=== PATIENT | male | born 1935 | race Caucasian/White ===

== ENCOUNTER 2018-01-04 21:56 | Emergency (ER) | payer OTHER, MEDICAID ==
[~2018-01-04] VITALS: Ht 152.4 cm; Wt 54.4 kg
[~2018-01-04 21:56] MED LIST: CARV3.1246 PO; FURO-150 PO; LORA-258 PO; SERT-131 PO
[2018-01-04 22:05] VITALS: BP_SYST 127
[2018-01-04] MEDS ORDERED: LIDOCAINE 1% 10 MG/ML, 20 ML MDV INJ ONE (22:15)
[2018-01-04] MEDS ORDERED: DIPH-TET-PERTUS Vaccine 0.5 ML VIAL (ADACEL) I.M. ONE (22:30)
[2018-01-04 23:34] VITALS: BP_SYST 152
== END 2018-01-04 23:34 | disposition home or self-care (01) ==
LOC: SED 21:56
DX: S02.2XXA Fracture of nasal bones, initial encounter for closed fracture (principal); S01.21XA Laceration without foreign body of nose, initial encounter; I10 Essential (primary) hypertension; F41.9 Anxiety disorder, unspecified; Z79.899 Other long term (current) drug therapy; W18.39XA Other fall on same level, initial encounter; Y93.89 Activity, other specified; Y92.009 Unspecified place in unspecified non-institutional (private) residence as the place of occurrence of the external cause; Y99.8 Other external cause status
CPT/HCPCS: 70450-TC; 70486-TC; 90715; 99284

== ENCOUNTER 2021-03-21 10:38 | Inpatient (IN) | payer OTHER, MEDICAID, SELFPAY ==
[~2021-03-21] VITALS: Ht 167.6 cm; Wt 60.8 kg
[2021-03-21 10:41] VITALS: BP_SYST 96
--- NOTE | 2021-03-21 10:41 | NUR ---
Placed in room 6 . Placed on hall monitor, blood pressure machine and pulse oximeter. To gown for exam. Side rails up. Report given to HUGH LOZOYA.
--- NOTE | 2021-03-21 10:49 | NUR ---
PT BROUGHT IN BY AMBULANCE FROM CORRECTION ATER BEING SEEN ON THE FLOOR BY NEIGHBOR. PT AWAKE, ALERT, ORIENTED X3, SMILING, IN NAD. RESP EVEN AND UNLABORED, ON RA @98%. DENIES ANY CP OR SOB. NO OBVIOUS HEAD TRAUMA NOTED. PT HAS KERLIX TO LEFT ARM, PER REPORT, PT HAS A SKIN TEAR , BRIGHT RED BLOOD NOTED. PT ABLE TO COMMUNICATE NEEDS AND FOLOWS SIMPLE COMMANDS. SAFETY PRECAUTIONS IN PLACE.
--- NOTE | 2021-03-21 10:55 | NUR ---
DR IVONNE RAY FOR EXAM.
--- NOTE | 2021-03-21 10:57 | NUR ---
PT TO CT SCAN VIA [facility]
[2021-03-21 11:49] LABS: BASOPHILS # (AUTO) 0.1 K/uL (0.0-0.2); BASOPHILS % (AUTO) 0.6 % (0.0-2.0); EOSINOPHILS % (AUTO) 0.1 % (0.0-4.0); HEMATOCRIT 28.8 % (36-54); HEMOGLOBIN 9.6 g/dL (14.0-18.0); LYMPHOCYTES % (AUTO) 8.1 % (20.5-51.5); MEAN CORPUSCULAR HEMOGLOBIN 27 pg (27-31); MEAN CORPUSCULAR HGB CONC 33 % (32-36); MEAN CORPUSCULAR VOLUME 82 fL (79.0-98.0); MONOCYTES # (AUTO) 0.8 K/uL (0.0-1.0); MONOCYTES % (AUTO) 6.1 % (1.7-9.3); NEUTROPHILS % (AUTO) 85.1 % (40.0-70.0); PLATELET COUNT (AUTO) 283 K/uL (130-430)
[2021-03-21 12:02] LABS: ANION GAP 2 (5-15); CALCIUM 8.9 mg/dL (8.4-11.0); CHLORIDE 99 mmol/L (98-107); CREATININE 0.68 mg/dL (0.55-1.30); GLUCOSE 110 mg/dL (70-99); POTASSIUM 3.6 mmol/L (3.5-5.1); SODIUM SERUM 134 mmol/L (136-145); UREA NITROGEN, BLOOD 19 mg/dL (8-21)
[2021-03-21 12:08] LABS: ALANINE AMINOTRANSFERASE 23 U/L (12-78); ALBUMIN 2.8 g/dL (3.4-4.8); ASPARTATE AMINOTRANSFERASE 33 U/L (10-37); LIPASE 75 U/L (73-393); TOTAL BILIRUBIN 0.9 mg/dL (0.0-1.0)
--- NOTE | 2021-03-21 12:18 | NUR ---
NO ACUTE CHANGE IN CONDITION, PT WITHEYE CLOSED, EASILY [place], IRMA ANY PAIN. WAITING FOR DISPO.
[2021-03-21 12:37] LABS: BILIRUBIN,URINE NEGATIVE (NEGATIVE); BLOOD, URINE NEGATIVE (NEGATIVE); CLARITY/URINE CLEAR (CLEAR); COLOR,URINE YELLOW (YELLOW); GLUCOSE,URINE NEGATIVE (NEGATIVE); KETONES,URINE 1+ (NEGATIVE); LEUKOCYTE ESTERASE ,URINE NEGATIVE (NEGATIVE); NITRITE, URINE NEGATIVE (NEGATIVE); PROTEIN URINE NEGATIVE (NEGATIVE); UROBILINOGEN,URINE 0.2 (0.2-1.0)
--- NOTE | 2021-03-21 13:10 | NUR ---
ADMISSION ORDERS RECEIVED FROM DR. KUMAR
--- NOTE | 2021-03-21 13:18 | NUR ---
CALL FOR TELE MARIAM BROWN TO CALL BACK
--- NOTE | 2021-03-21 14:14 | NUR ---
PT HAVING ECHO A BEDSIDE AT THIS TIME.
--- NOTE | 2021-03-21 14:35 | NUR ---
CONSULTATION PAGED REASON FOR CONSULTATIONlSYNOCOPE WAS CONSULT CALED?Y PERSON WHO WAS NOTIFIED:DAVID CONSULTING PHYSICIAN:RAMSES MOCTEZUMA WATCH REPAIRER SPECIALTY:CARDIO WATCH REPAIRER PHONE [phone]: REQUESTING PHYSICIAN:ANTONINA KOHLI
[2021-03-21 14:48] VITALS: BP_SYST 102
--- NOTE | 2021-03-21 14:49 | NUR ---
Patient will be admitted to care of [facility]. Admitted to unit. Will go to room . Belongings list completed. Complete and up to date summary report printed. SBAR report to be given at bedside with opportunity for questions.
[2021-03-21] MEDS ORDERED: ACETAMINOPHEN 325 MG TABLET PO PRN (15:15)
[2021-03-21] MEDS ORDERED: CARVEDILOL 3.125 MG TABLET (COREG) PO ONE (15:15)
[2021-03-21] MEDS ORDERED: D5/0.45 NS 1,000 ML IV SCH (15:30)
[2021-03-21] MEDS: KCL 20 mEq in D5/0.45NS 1000mL 1,000 ML IV SCH (16:10)
--- NOTE | 2021-03-21 18:50 | NUR ---
PATIENT RESTING IN BED, AAO x4, DENIES PAIN/DISCOMFORT. RESPIRATIONS EVEN AND UL ON RA. KCL D5 1/2 NS INFUSING TO RFA AT 60ML/HR, IV SITE WNL. BED IN LOWEST POSITION, CALL LIGHT IN REACH, SAFETY MEASURES IN PLACE. WILL CONT TO MONITOR AND ENDORSE TO PM NURSE.
[2021-03-21 20:00] VITALS: BP_SYST 92
[2021-03-21] MEDS: CARVEDILOL 3.125 MG TABLET (COREG) PO SCH (21:00)
[2021-03-21] MEDS ORDERED: APIXABAN 2.5 MG TABLET PO SCH (21:00)
[2021-03-21] MEDS: SERTRALINE HCL 50 MG TABLET PO SCH (21:57)
[2021-03-21] MEDS: LORazepam 1 MG TABLET PO SCH (21:58)
--- NOTE | 2021-03-21 22:00 | NUR ---
ROUNDING NOTES Patient resting in bed - no s/s pain or distress noted. respirations even and unlabored- head of bed elevated. IV site patent - no s/s redness, infection, or infiltration. Bed locked and in lowest position. Call light within reach - bed alarm on.
[2021-03-22] VITALS: BP_SYST 102
[2021-03-22] MEDS: KCL 20 mEq in D5/0.45NS 1000mL 1,000 ML IV SCH (06:30)
--- NOTE | 2021-03-22 06:43 | NUR ---
CLOSING NOTES Patient resting in bed - no s/s pain or distress noted. Respirations even and unlabored - head of bed elevated. IV site patent - no s/s redness, infection, or infiltration. Bed locked and in lowest position. Call light within reach - bed alarm on. Patient did not have a bowel movement throughout entire shift.
[2021-03-22 07:16] LABS: BASOPHILS % (AUTO) 0.4 % (0.0-2.0); EOSINOPHILS # (AUTO) 0.1 K/uL (0.0-0.4); EOSINOPHILS % (AUTO) 0.8 % (0.0-4.0); HEMATOCRIT 26.6 % (36-54); LYMPHOCYTES # (AUTO) 0.9 K/uL (1.0-5.5); LYMPHOCYTES % (AUTO) 9.3 % (20.5-51.5); MEAN CORPUSCULAR HEMOGLOBIN 28 pg (27-31); MEAN CORPUSCULAR HGB CONC 34 % (32-36); MEAN CORPUSCULAR VOLUME 84 fL (79.0-98.0); MONOCYTES # (AUTO) 0.8 K/uL (0.0-1.0); MONOCYTES % (AUTO) 7.8 % (1.7-9.3); NEUTROPHILS % (AUTO) 81.7 % (40.0-70.0); PLATELET COUNT (AUTO) 266 K/uL (130-430); RED BLOOD CELL COUNT(AUTO) 3.18 MIL/uL (4.2-6.2); RED CELL DISTRIBUTION WIDTH 14.1 % (9.0-15.0); WHITE BLOOD COUNT (AUTO) 9.8 K/uL (4.8-10.8)
--- NOTE | 2021-03-22 07:40 | NUR ---
Opening note Patient is resting in bed A&Ox3 hard of hearing , no complaint of pain or discomfort, No signs or symptoms of respiratory distress.IV is infusing, no sign signs or symptoms of infiltration. Unable to educate patient effectively because patient is hard of hearing, will reenforce teaching. Bed is in lowest position call light within reach fall and aspiration precautions are in place. Will continue to monitor.
[2021-03-22 08:00] VITALS: BP_SYST 91
[2021-03-22] MEDS: CARVEDILOL 3.125 MG TABLET (COREG) PO SCH ×2 (09:00→20:05)
--- NOTE | 2021-03-22 09:15 | NUR ---
Medication held Dr. Andre made aware of patients low blood pressure, MD recommends holding carvidelol if systolic blood pressure is below 100.
[2021-03-22] MEDS: LORazepam 1 MG TABLET PO SCH ×2 (09:16→20:04)
[2021-03-22] MEDS: SERTRALINE HCL 50 MG TABLET PO SCH ×2 (09:16→20:04)
[2021-03-22] MEDS: ASPIRIN 81 MG TAB.CHEW PO SCH (09:16)
[2021-03-22 10:00] LABS: ANION GAP 1 (5-15); CALCIUM 8.3 mg/dL (8.4-11.0); CHLORIDE 102 mmol/L (98-107); CREATININE 0.67 mg/dL (0.55-1.30); GLUCOSE 99 mg/dL (70-99); POTASSIUM 3.6 mmol/L (3.5-5.1); SODIUM SERUM 136 mmol/L (136-145); UREA NITROGEN, BLOOD 14 mg/dL (8-21)
[2021-03-22 11:25] LABS: TOTAL IRON BIND. CAPACITY 136 ug/dL (250-450)
--- NOTE | 2021-03-22 13:15 | NUR ---
RN note Patient ambulated with PT, tolerated well. Will refer to PT notes for updates
[2021-03-22] MEDS: SOD FERRIC GLUC COMPLEX/SUC 125 MG in NS 100 ML IV SCH (13:27)
--- NOTE | 2021-03-22 15:52 | NUR ---
Dietitian Recommendations * Recommend cardiac diet w/ Ensure Enlive BID (ONS provides 700 kcal/day, 40 gm protein/day) * Encourage PO intakes * Continue plans for appetite stimulant TYRON, PAULO Please refer to Nutrition Assessment for details. Addendum: 03/22/21 at [address] Amended: Links added.
[2021-03-22 16:00] VITALS: BP_SYST 91
[2021-03-22 20:00] VITALS: BP_SYST 93
--- NOTE | 2021-03-22 22:00 | NUR ---
ROUNDING NOTES Patient resting in bed - no s/s pain or distress noted. Respirations even and unlabored- head of bed elevated. IV site patent - no s/s redness, infection, or infiltration. Bed locked and in lowest position. Call light within reach - bed alarm on.
[2021-03-23] VITALS: BP_SYST 92
[2021-03-23] MEDS: KCL 20 mEq in D5/0.45NS 1000mL 1,000 ML IV SCH ×2 (01:13→15:59)
[2021-03-23 08:30] VITALS: BP_SYST 105
[2021-03-23] MEDS: SERTRALINE HCL 50 MG TABLET PO SCH ×2 (08:45→20:39)
[2021-03-23] MEDS: ASPIRIN 81 MG TAB.CHEW PO SCH (08:46)
[2021-03-23] MEDS: LORazepam 1 MG TABLET PO SCH ×2 (08:58→20:40)
[2021-03-23] MEDS: CARVEDILOL 3.125 MG TABLET (COREG) PO SCH ×2 (08:58→20:41)
[2021-03-23 09:04] LABS: ANION GAP 3 (5-15); CALCIUM 8.5 mg/dL (8.4-11.0); CHLORIDE 102 mmol/L (98-107); CREATININE 0.58 mg/dL (0.55-1.30); GLUCOSE 109 mg/dL (70-99); PHOSPHORUS 2.6 mg/dL (2.7-4.5); POTASSIUM 4.1 mmol/L (3.5-5.1); SODIUM SERUM 136 mmol/L (136-145); UREA NITROGEN, BLOOD 12 mg/dL (8-21)
[2021-03-23 09:06] LABS: FOLATE (FOLIC ACID) 16.5 ng/mL (>3.0)
[2021-03-23 10:42] LABS: BASOPHILS # (AUTO) 0.1 K/uL (0.0-0.2); BASOPHILS % (AUTO) 0.4 % (0.0-2.0); EOSINOPHILS # (AUTO) 0.1 K/uL (0.0-0.4); EOSINOPHILS % (AUTO) 0.6 % (0.0-4.0); HEMATOCRIT 27.8 % (36-54); LYMPHOCYTES # (AUTO) 1.2 K/uL (1.0-5.5); LYMPHOCYTES % (AUTO) 9.2 % (20.5-51.5); MEAN CORPUSCULAR HEMOGLOBIN 27 pg (27-31); MEAN CORPUSCULAR HGB CONC 32 % (32-36); MEAN CORPUSCULAR VOLUME 84 fL (79.0-98.0); MONOCYTES % (AUTO) 7.4 % (1.7-9.3); NEUTROPHILS # (AUTO) 10.9 K/uL (1.8-7.7); NEUTROPHILS % (AUTO) 82.4 % (40.0-70.0); PLATELET COUNT (AUTO) 274 K/uL (130-430); RED BLOOD CELL COUNT(AUTO) 3.33 MIL/uL (4.2-6.2); RED CELL DISTRIBUTION WIDTH 14.3 % (9.0-15.0)
[2021-03-23 10:51] LABS: WHITE BLOOD COUNT (AUTO) 13.2 K/uL (4.8-10.8)
[2021-03-23 12:10] VITALS: BP_SYST 115
[2021-03-23] MEDS: SOD FERRIC GLUC COMPLEX/SUC 125 MG in NS 100 ML IV SCH (13:10)
[2021-03-23 13:38] LABS: PROTHROMBIN TIME 10.7 SECS (9.5-12.5)
[2021-03-23 16:10] VITALS: BP_SYST 108
[2021-03-23 19:30] VITALS: BP_SYST 128
[2021-03-23 20:00] VITALS: BP_SYST 128
[2021-03-24 05:00] VITALS: BP_SYST 118
[2021-03-24 07:55] VITALS: BP_SYST 116
[2021-03-24] MEDS: ASPIRIN 81 MG TAB.CHEW PO SCH (08:14)
[2021-03-24] MEDS: SERTRALINE HCL 50 MG TABLET PO SCH ×2 (08:14→20:33)
[2021-03-24] MEDS: LORazepam 1 MG TABLET PO SCH ×2 (08:15→20:33)
[2021-03-24] MEDS: CARVEDILOL 3.125 MG TABLET (COREG) PO SCH ×2 (08:15→20:34)
--- NOTE | 2021-03-24 09:19 | NUR ---
Please see the Physical Therapy evaluation on 03/22/21.
[2021-03-24 11:00] LABS: INR 1.1 (0.80-1.20); PROTHROMBIN TIME 11.2 SECS (9.5-12.5)
--- NOTE | 2021-03-24 11:15 | NUR ---
Note Pt was seen and assessed by Dr Andre at 0750am. Pt's tele unit attached and intact. Pt was assisted in eating his breakfast. HOB at 90'. Pt OOB with PT and FWW at this time to ambulate and pt tolerating ambulation well. Pt now in restroom with assist from PT [place]. Pt weak and needs moderate assist. Pt incontinent in bed and on the floor - side of bed when pt got OOB to stand. Pt next to nurses' station for close observation.
[2021-03-24 12:00] VITALS: BP_SYST 116
[2021-03-24] MEDS: KCL 20 mEq in D5/0.45NS 1000mL 1,000 ML IV SCH (13:13)
--- NOTE | 2021-03-24 13:38 | NUR ---
CM: Per dr. Alberto, dcp to [facility] The pt agreed with the transfer after spoke with dr. Alberto. Addendum: 03/24/21 at 1341 by Deisy Valdez RN disposition 03
[2021-03-24] MEDS: SOD FERRIC GLUC COMPLEX/SUC 125 MG in NS 100 ML IV SCH (14:13)
[2021-03-24 16:00] VITALS: BP_SYST 118
--- NOTE | 2021-03-24 16:05 | NUR ---
Discharge Planning: DCP faxed pt referral to [facility] ([phone] F [phone]). Disposition #[id number]
--- NOTE | 2021-03-24 16:55 | NUR ---
Note Covid - Rain was swabbed and sent to lab.
--- NOTE | 2021-03-24 18:35 | NUR ---
Note Pt's sister came to bedside around 1730 to assist pt with eating his dinner. Pt sitting up in bed with sister by his side. Pt was checked on q1' and PRN all shift for needs and care. Pt's bed in low position and bed alarm on all shift. Pt next to nurses' station for close observation for needs and care. IV in right wrist intact and patent infusing IVF's well. Call light within reach.
--- NOTE | 2021-03-24 19:30 | NUR ---
Opening note Received report from day shift. Pt is awake sitting up in bed watching TV. No s/s of respiratory distress. Breathing even and unlabored. IV site is intact and patent with fluids running at ordered rate. Fall and safety precautions in place with bed in lowest position, bed alarm on, and call light within reach
[2021-03-24 20:00] VITALS: BP_SYST 100
[2021-03-25] VITALS: BP_SYST 107
--- NOTE | 2021-03-25 00:15 | NUR ---
Rounds Pt is sleeping. No s/s of respiratory distress. No needs at this time. Fall and safety checks in place
[2021-03-25] MEDS: KCL 20 mEq in D5/0.45NS 1000mL 1,000 ML IV SCH (02:08)
--- NOTE | 2021-03-25 06:35 | NUR ---
Closing note Pt awake resting in bed watching TV. AM care provided. No s/s of respiratory distress. Breathing even and unlabored. IV site is intact and patent with fluids running at ordered rate. All needs met throughout shift. Fall and safety precautions in place with bed in lowest position, bed alarm on, and call light within reach. Will monitor until endorsed to day shift
[2021-03-25 07:02] LABS: BASOPHILS % (AUTO) 0.2 % (0.0-2.0); EOSINOPHILS # (AUTO) 0.3 K/uL (0.0-0.4); EOSINOPHILS % (AUTO) 2.7 % (0.0-4.0); HEMATOCRIT 26.6 % (36-54); HEMOGLOBIN 8.8 g/dL (14.0-18.0); LYMPHOCYTES # (AUTO) 0.9 K/uL (1.0-5.5); LYMPHOCYTES % (AUTO) 7.7 % (20.5-51.5); MEAN CORPUSCULAR HEMOGLOBIN 28 pg (27-31); MEAN CORPUSCULAR HGB CONC 33 % (32-36); MEAN CORPUSCULAR VOLUME 83 fL (79.0-98.0); MONOCYTES % (AUTO) 8.4 % (1.7-9.3); NEUTROPHILS # (AUTO) 9.9 K/uL (1.8-7.7); PLATELET COUNT (AUTO) 251 K/uL (130-430); RED CELL DISTRIBUTION WIDTH 14.5 % (9.0-15.0); WHITE BLOOD COUNT (AUTO) 12.2 K/uL (4.8-10.8)
[2021-03-25 07:57] LABS: ANION GAP 3 (5-15); CALCIUM 8.9 mg/dL (8.4-11.0); CHLORIDE 103 mmol/L (98-107); CREATININE 0.65 mg/dL (0.55-1.30); GLUCOSE 97 mg/dL (70-99); POTASSIUM 4.2 mmol/L (3.5-5.1); SODIUM SERUM 136 mmol/L (136-145); UREA NITROGEN, BLOOD 13 mg/dL (8-21)
[2021-03-25 08:00] VITALS: BP_SYST 97
--- NOTE | 2021-03-25 08:00 | NUR ---
PATIENT IV BECAME DISLODGED ON ACCIDENT, REMOVED IV FULLY ENSURED CATHETER WAS INTACT, CLEANED PATIENT, CHANGED LINENS, INSERTED NEW IV INTO R FOREARM 22G, DRESSING CLEAN DRY AND INTACT, FLUSHES WELL, RUNNING FLUIDS
[2021-03-25 08:14] LABS: PROTHROMBIN TIME 10.9 SECS (9.5-12.5)
[2021-03-25] MEDS: LORazepam 1 MG TABLET PO SCH (08:29)
[2021-03-25] MEDS: ASPIRIN 81 MG TAB.CHEW PO SCH (08:30)
[2021-03-25] MEDS: SERTRALINE HCL 50 MG TABLET PO SCH (08:30)
[2021-03-25] MEDS: CARVEDILOL 3.125 MG TABLET (COREG) PO SCH (08:30)
[2021-03-25 11:42] VITALS: BP_SYST 117
[2021-03-25] MEDS: SOD FERRIC GLUC COMPLEX/SUC 125 MG in NS 100 ML IV SCH (12:20)
--- NOTE | 2021-03-25 12:22 | NUR ---
Discharge Planning: DCP was given Rm 104A at [facility] # [phone] for report. Transport arranged with [facility] [phone] 5:00pm P/U DCP made charge nurse and CM aware. RN to get final DC order.
[2021-03-25 12:30] VITALS: BP_SYST 120
--- NOTE | 2021-03-25 12:30 | NUR ---
RECEIVED REPORT THAT PAT[facility] AT [facility], CALLED DR KUMAR TO ASK FOR FINALIZED DISCHARGE ORDER INCLUDING FINALIZED MEDICATIONS, AWAITING CALL BACK.
--- NOTE | 2021-03-25 14:10 | NUR ---
HAVE NOT RECEIVED CALL FROM DR KUMAR, CALLED DR LUKE AGAIN, AWAITING CALL BACK.
[2021-03-25 15:31] VITALS: BP_SYST 120
--- NOTE | 2021-03-25 15:59 | NUR ---
ASKED PATIENT IF HE HAS RECEIVED HIS FLU VACCINE THIS SEASON, STATED HE HAS NOT AND WANTS IT, WILL PROVIDE PER PROTOCOL.
[2021-03-25] MEDS ORDERED: FLU VACC QS2021-22(6MOS UP)/PF 0.5 ML/SYR SYRINGE I.M. PRN (16:00)
--- NOTE | 2021-03-25 19:08 | NUR ---
PATIENT DISCHARGED, GAVE REPORT TO EMORY AT [facility], ALSO GAVE REPORT TO FAIZA DAVIS WITH [facility], IV REMOVED, DISCHARGED EXPLAINED AND EDUCATED PATIENT AND SISTER AT BEDSIDE, DISCHARGE PACKET SIGNED, COPY WITH PATIENT, ORIGINAL IN CHART, TRANSFER CONSENT SIGNED, TELE BOX REMOVED, WRIST BAND REMOVED, ALL BELONGINGS WITH PATIENT, STABLE FOR TRANSFER, TRANSFERRED VIA GURNEY, ALL QUESTIONS ANSWERED. Addendum: 03/25/21 at 1912 by Kely Wang RN PICTURE OF WOUND ON LEFT FOREARM TAKEN AND IN CHART. NOTIFIED FROM PREVIOUS NURSE THAT DR KUMAR VISUALIZED THE WOUND AND DID NOT ORDER FURTHER CARE ON IT, DRESSING CLEAN DRY AND INTACT.
--- NOTE | 2021-03-25 19:18 | NUR ---
Family reports hearing aid is missing I informed nurse, Kely (traveler RN), that ambulance crew and sister came to desk and told me patient lost his hearing aid. Kely said that she already spoke to daughter and she was informed hearing aid was lost at home. I told the sister what the nurse told me (lost at home). The sister, Destiny, replied no that information is incorrect. She insists that she brought the hearing aid on Wednesday; she gave it to the patient and informed the nurse that she brought the hearing aid; and now it is missing.
== END 2021-03-25 19:20 | DRG 74 ==
LOC: SED 10:38 → STU 13:07
PROVIDERS: ADMIT Family Medicine; ATTEND Family Medicine
DX: G90.8 Other disorders of autonomic nervous system (principal); E44.0 Moderate protein-calorie malnutrition; I48.91 Unspecified atrial fibrillation; I10 Essential (primary) hypertension; M19.90 Unspecified osteoarthritis, unspecified site; D50.9 Iron deficiency anemia, unspecified; Z20.822 Contact with and (suspected) exposure to COVID-19; I35.9 Nonrheumatic aortic valve disorder, unspecified; I44.7 Left bundle-branch block, unspecified; I49.1 Atrial premature depolarization; Z96.643 Presence of artificial hip joint, bilateral; Z96.653 Presence of artificial knee joint, bilateral; Z68.21 Body mass index [BMI] 21.0-21.9, adult; Z87.891 Personal history of nicotine dependence; Z95.3 Presence of xenogenic heart valve
CPT/HCPCS: 36415; 70450-TC; 71045; 72125-TC; 76376; 80048; 80053; 81003; 82272; 82550; 82607; 82728; 82746; 83540; 83550; 83605; 83690; 83735; 84100; 84484; 85025; 85610-TC; 93005; 93306; 97110-GP; 97116-GP; 97163-GP; 97530-GP; 99285; G0378; J2916